=== PATIENT | female | born 1950 | race Caucasian/White ===

== ENCOUNTER 2018-02-18 15:54 | Emergency (ER) | payer MEDICARE ==
[2018-02-18 16:03] VITALS: RESP 18
[2018-02-18] MEDS ORDERED: SODIUM CHLORIDE 0.9% 1,000 ML IV STA (16:34)
--- NOTE | 2018-02-18 17:08 | ED ---
General Adult HPI - General Chief complaint: Syncope Stated complaint: Lightheaded Time Seen by Provider: 02/18/18 16:17 Source: patient, EMS Mode of arrival: EMS Limitations: no limitations - History of Present Illness Initial comments: 67-year-old female without any significant past medical history presents to the emergency department for a chief complaint of near-syncope occurring about one hour prior to arrival. Patient states she was at the dentist office about to get teeth pulled when she became nervous and suddenly felt lightheaded. Patient states she think down to her knees. She denied any loss of consciousness. Patient denies falling or hitting her head. Patient denies any chest pain or shortness of breath either when this occurred or currently. She states she is feeling completely better at this time. Patient has no other complaints at this time including shortness of breath, chest pain, abdominal pain, nausea or vomiting, headache, or visual changes. - Related Data Home Medications Medication Instructions Recorded Confirmed Multivitamins, Thera [Multivitamin 1 tab PO DAILY 02/18/18 02/18/18 (formulary)] Allergies Allergy/AdvReac Type Severity Reaction Status Date / Time No Known Allergies Allergy Verified 02/18/18 16:11 Review of Systems ROS Statement: Those systems with pertinent positive or pertinent negative responses have been documented in the HPI. ROS Other: All systems not noted in ROS Statement are negative. Past Medical History Additional Past Medical History / Comment(s): neck cyst History of Any Multi-Drug Resistant Organisms: None Reported Past Surgical History: No Surgical Hx Reported Past Psychological History: No Psychological Hx Reported Smoking Status: Never smoker Past Alcohol Use History: None Reported Past Drug Use History: None Reported General Exam Limitations: no limitations General appearance: alert, in no apparent distress Head exam: Present: atraumatic, normocephalic, normal inspection Eye exam: Present: normal appearance, PERRL, EOMI. Absent: scleral icterus, conjunctival injection, periorbital swelling ENT exam: Present: normal exam, mucous membranes moist Neck exam: Present: normal inspection, full ROM. Absent: tenderness, meningismus, lymphadenopathy Respiratory exam: Present: normal lung sounds bilaterally. Absent: respiratory distress, wheezes, rales, rhonchi, stridor Cardiovascular Exam: Present: regular rate, normal rhythm, normal heart sounds. Absent: systolic murmur, diastolic murmur, rubs, gallop, clicks Neurological exam: Present: alert, oriented X3, CN II-XII intact, normal gait. Absent: motor sensory deficit Expanded Speech: Present: fluid speech Cranial nerves: EOM's Intact: Normal, Tongue Deviation: Normal, Nystagmus: Normal Cerebellar function: Finger to Nose: Normal Upper motor neuron: Pronator Drift: Normal Sensory exam: Upper Extremity Light Touch: Normal, Upper Extremity Pin Prick: Normal, Lower Extremity Light Touch: Normal, Lower Extremity Pin Prick: Normal Eye Response: (4) open spontaneously Motor Response: (6) obeys commands Verbal Response: (5) oriented Carolin Total: 15 Psychiatric exam: Present: normal affect, normal mood Course Vital Signs 02/18/18 15:57 Temperature 99.2 F Pulse Rate 77 Respiratory 18 Rate Blood Pressure 158/95 O2 Sat by Pulse 97 Oximetry EKG Findings - EKG Comments: EKG Findings:: Normal sinus rhythm, ventricular rate 68, NE interval 166, QTC 440, no evidence of ST elevation or depression. No inverted T waves. Medical Decision Making - Medical Decision Making 67-year-old female without significant past medical or cardiac history presents to the emergency department for a chief complaint of near syncope occurring at the dentist office. Patient states she was nervous about getting her teeth pulled and became lightheaded. She states she bent down to her knees but did not lose consciousness or fall or hit her head. Patient denies any chest pain or shortness of breath. Patient denies any lightheadedness at this time and states she is feeling completely better. On exam patient is well-appearing. No focal neuro deficits. GCS 15. EKG shows sinus rhythm with no evidence of ST elevation, depression, or T wave inversions. Chest x-ray shows no acute cardiopulmonary process. CBC and CMP are unremarkable. Patient does have a white count of 13.1 for which the dentist wrote a prescription for penicillin today. Troponin less than 0.012. Urine does have some moderate blood which patient will follow up for. It was cultured as patient does have moderate leukocyte Estrace as well. Patient likely had a situational vasovagal near syncope. Patient states she does have a prescription for penicillin but requests a dose here as she is not able to get to the pharmacy to fill it. Patient will follow up with primary care in the next 1-2 days for hematuria and near syncope.. She will follow up with dentist for dental infection. She will return here if she has any worsening symptoms. These instructions were given verbally and in writing. Patient voices understanding of all instructions. Discussed with Dr. Rainey - Lab Data Result diagrams: 02/18/18 17:04 02/18/18 17:04 Lab Results 02/18/18 02/18/18 02/18/18 Range/Units 17:04 17:04 17:04 WBC 13.1 H (3.8-10.6) k/uL RBC 4.85 (3.80-5.40) m/uL Hgb 14.1 (11.4-16.0) gm/dL Hct 41.8 (34.0-46.0) % MCV 86.2 (80.0-100.0) fL MCH 29.2 (25.0-35.0) pg MCHC 33.9 (31.0-37.0) g/dL RDW 14.6 (11.5-15.5) % Plt Count 165 (150-450) k/uL Neutrophils % 87 % Lymphocytes % 7 % Monocytes % 5 % Eosinophils % 1 % Basophils % 0 % Neutrophils # 11.4 H (1.3-7.7) k/uL Lymphocytes # 0.9 L (1.0-4.8) k/uL Monocytes # 0.6 (0-1.0) k/uL Eosinophils # 0.1 (0-0.7) k/uL Basophils # 0.0 (0-0.2) k/uL PT (9.0-12.0) sec INR (<1.2) APTT (22.0-30.0) sec Sodium 140 (137-145) mmol/L Potassium 4.0 (3.5-5.1) mmol/L Chloride 104 (98-107) mmol/L Carbon Dioxide 26 (22-30) mmol/L Anion Gap 10 mmol/L BUN 14 (7-17) mg/dL Creatinine 0.70 (0.52-1.04) mg/dL Est GFR (CKD-EPI)AfAm >90 (>60 ml/min/1.73 sqM) Est GFR (CKD-EPI)NonAf 89 (>60 ml/min/1.73 sqM) Glucose 149 H (74-99) mg/dL Calcium 9.6 (8.4-10.2) mg/dL Total Bilirubin 0.6 (0.2-1.3) mg/dL AST 21 (14-36) U/L ALT 32 (9-52) U/L Alkaline Phosphatase 66 (38-126) U/L Total Creatine Kinase 109 (30-135) U/L CK-MB (CK-2) 1.1 (0.0-2.4) ng/mL CK-MB (CK-2) Rel Index 1.0 Troponin I <0.012 (0.000-0.034) ng/mL Total Protein 7.8 (6.3-8.2) g/dL Albumin 4.4 (3.5-5.0) g/dL Urine Color Urine Appearance (Clear) Urine pH (5.0-8.0) Ur Specific Cache (1.001-1.035) Urine Protein (Negative) Urine Glucose (UA) (Negative) Urine Ketones (Negative) Urine Blood (Negative) Urine Nitrite (Negative) Urine Bilirubin (Negative) Urine Urobilinogen (<2.0) mg/dL Ur Leukocyte Esterase (Negative) Urine RBC (0-5) /hpf Urine WBC (0-5) /hpf Ur Squamous Epith Cells (0-4) /hpf Urine Bacteria (None) /hpf Urine Mucus (None) /hpf 02/18/18 02/18/18 Range/Units 17:04 17:39 WBC (3.8-10.6) k/uL RBC (3.80-5.40) m/uL Hgb (11.4-16.0) gm/dL Hct (34.0-46.0) % MCV (80.0-100.0) fL MCH (25.0-35.0) pg MCHC (31.0-37.0) g/dL RDW (11.5-15.5) % Plt Count (150-450) k/uL Neutrophils % % Lymphocytes % % Monocytes % % Eosinophils % % Basophils % % Neutrophils # (1.3-7.7) k/uL Lymphocytes # (1.0-4.8) k/uL Monocytes # (0-1.0) k/uL Eosinophils # (0-0.7) k/uL Basophils # (0-0.2) k/uL PT 10.4 (9.0-12.0) sec INR 1.1 (<1.2) APTT 21.5 L (22.0-30.0) sec Sodium (137-145) mmol/L Potassium (3.5-5.1) mmol/L Chloride (98-107) mmol/L Carbon Dioxide (22-30) mmol/L Anion Gap mmol/L BUN (7-17) mg/dL Creatinine (0.52-1.04) mg/dL Est GFR (CKD-EPI)AfAm (>60 ml/min/1.73 sqM) Est GFR (CKD-EPI)NonAf (>60 ml/min/1.73 sqM) Glucose (74-99) mg/dL Calcium (8.4-10.2) mg/dL Total Bilirubin (0.2-1.3) mg/dL AST (14-36) U/L ALT (9-52) U/L Alkaline Phosphatase (38-126) U/L Total Creatine Kinase (30-135) U/L CK-MB (CK-2) (0.0-2.4) ng/mL CK-MB (CK-2) Rel Index Troponin I (0.000-0.034) ng/mL Total Protein (6.3-8.2) g/dL Albumin (3.5-5.0) g/dL Urine Color Light Yellow Urine Appearance Clear (Clear) Urine pH 6.0 (5.0-8.0) Ur Specific Cache 1.009 (1.001-1.035) Urine Protein Negative (Negative) Urine Glucose (UA) Negative (Negative) Urine Ketones Negative (Negative) Urine Blood Moderate H (Negative) Urine Nitrite Negative (Negative) Urine Bilirubin Negative (Negative) Urine Urobilinogen <2.0 (<2.0) mg/dL Ur Leukocyte Esterase Moderate H (Negative) Urine RBC 12 H (0-5) /hpf Urine WBC 8 H (0-5) /hpf Ur Squamous Epith Cells 1 (0-4) /hpf Urine Bacteria Rare H (None) /hpf Urine Mucus Rare H (None) /hpf Disposition Clinical Impression: Near syncope Disposition: HOME SELF-CARE Condition: Good Instructions: Syncope (ED), Hematuria (ED) Additional Instructions: Please follow-up with your primary care provider in one to 2 days for near syncope and hematuria. Please return here to the emergency department immediately for any worsening symptoms Is patient prescribed a controlled substance at d/c from ED?: No Referrals: Jaqueline Cash MD [STAFF PHYSICIAN] - 1-2 days Time of Disposition: 18:44
[2018-02-18 17:16] LABS: Basophils % (A) 0 %; Eosinophils # (A) 0.1 k/uL (0-0.7); Eosinophils % (A) 1 %; HCT 41.8 % (34.0-46.0); HGB 14.1 gm/dL (11.4-16.0); Lymphocytes # (A) 0.9 k/uL (1.0-4.8); Lymphocytes % (A) 7 %; MCH 29.2 pg (25.0-35.0); MCHC 33.9 g/dL (31.0-37.0); MCV 86.2 fL (80.0-100.0); Mean Platelet Volume 6.9; Monocytes # (A) 0.6 k/uL (0-1.0); Monocytes % (A) 5 %; Neutrophils # (A) 11.4 k/uL (1.3-7.7); Neutrophils % (A) 87 %; Platelet Count 165 k/uL (150-450); RBC 4.85 m/uL (3.80-5.40); RDW 14.6 % (11.5-15.5); WBC 13.1 k/uL (3.8-10.6)
--- NOTE | 2018-02-18 17:29 | XR ---
EXAMINATION: XR chest 2V DATE AND TIME: 02/18/2018 5:20 PM CLINICAL INDICATION: syncope TECHNIQUE: PA and lateral COMPARISON: None. FINDINGS: The lungs are clear. Biapical pleural capping is noted, greater on the right. Overlying ribs are intact. The pleural spaces are negative. The cardiac silhouette is not enlarged. The remainder of the mediastinal silhouette is unremarkable. The skeletal structures and soft tissues are negative for acute findings. IMPRESSION: NO ACUTE PROCESS.
[2018-02-18 17:30] LABS: ALT 32 U/L (9-52); AST 21 U/L (14-36); Albumin 4.4 g/dL (3.5-5.0); Alkaline Phosphatase 66 U/L (38-126); Anion Gap 10 mmol/L; Blood Urea Nitrogen 14 mg/dL (7-17); Calcium 9.6 mg/dL (8.4-10.2); Carbon Dioxide 26 mmol/L (22-30); Chloride 104 mmol/L (98-107); Glucose 149 mg/dL (74-99); Sodium 140 mmol/L (137-145); Total Bilirubin 0.6 mg/dL (0.2-1.3); Total Protein 7.8 g/dL (6.3-8.2)
[2018-02-18 17:32] LABS: Creatine Kinase 109 U/L (30-135)
[2018-02-18 17:34] LABS: INR 1.1 (<1.2); Partial Thromboplastin Time 21.5 sec (22.0-30.0); Prothrombin Time 10.4 sec (9.0-12.0)
[2018-02-18 17:45] LABS: Creatine Kinase MB 1.1 ng/mL (0.0-2.4); Troponin I <0.012 ng/mL (0.000-0.034)
[2018-02-18 17:49] LABS: Appearance,Urine Clear (Clear); Bacteria,Urine Rare /hpf; Bilirubin,Urine Negative (Negative); Blood,Urine Moderate (Negative); Color,Urine Light Yellow; Glucose,Urine (UA) Negative (Negative); Ketones,Urine Negative (Negative); Leukocyte Esterase,Urine Moderate (Negative); Mucus,Urine Rare /hpf; Nitrite,Urine Negative (Negative); Protein,Urine Negative (Negative); RBC,Urine 12 /hpf (0-5); Specific Gravity,Urine 1.009 (1.001-1.035); Squamous Epithelial Cell,Urine 1 /hpf (0-4); Urobilinogen,Urine <2.0 mg/dL (<2.0); WBC,Urine 8 /hpf (0-5)
[2018-02-18] MEDS ORDERED: PENICILLIN VK 500MG STARTER 4 TAB BTL PO STA (18:26)
[2018-02-18 19:14] VITALS: BP 186/94; PULSE 70; TEMP 100.3
== END 2018-02-18 19:13 | disposition home or self-care (01) ==
LOC: EC 15:54
DX: R55 Syncope and collapse (principal); K04.7 Periapical abscess without sinus; R31.9 Hematuria, unspecified; R82.998 Other abnormal findings in urine
CPT/HCPCS: 36415; 71046; 80053; 81001; 82550; 82553; 84484; 85025; 85610; 85730; 87086; 93005; 96360; 96361; 99285

== ENCOUNTER → 2020-12-01 | Outpatient (CLI) | payer MEDICARE ==
--- NOTE | 2020-12-02 12:46 | MM ---
Reason for exam: screening (asymptomatic). History: Patient is postmenopausal. Took hormonal contraceptives for 6 months. Physical Findings: A clinical breast exam by your physician is recommended on an annual basis and results should be correlated with mammographic findings. MG Screening Mammo w CAD Bilateral CC and MLO view(s) were taken. No prior studies available for comparison. There are scattered fibroglandular densities. Finding: There is a 8 mm indistinct lobulated density in the outer quadrant, anterior position of the left breast. ASSESSMENT: Incomplete: need additional imaging evaluation, BI-RAD 0 RECOMMENDATION: Special view mammogram and ultrasound of the left breast. [facility] will attempt to contact patient to return for supplemental views and ultrasound.
== END | disposition home or self-care (01) ==
LOC: RADMAMWWP 14:04
PROVIDERS: ATTEND Family Medicine
DX: Z12.31 Encounter for screening mammogram for malignant neoplasm of breast (principal); Z78.0 Asymptomatic menopausal state
CPT/HCPCS: 77067

== ENCOUNTER 2022-07-12 15:42 | Emergency (ER) | payer MEDICARE ==
[2022-07-12 16:29] VITALS: TEMP 98
--- NOTE | 2022-07-12 16:29 | ED ---
Upper Extremity HPI - General Source: patient Mode of arrival: ambulatory Limitations: physical limitation <Ligia Mg - Last Filed: 07/12/22 16:29> <Roly Rainey - Last Filed: 07/12/22 17:47> - General Stated Complaint: Lt arm injury Time Seen by Provider: 07/12/22 16:29 - History of Present Illness Initial Comments: Patient is a 72-year-old female presenting with chief complaint of left wrist pain. Patient states that she was cleaning up and when she fell backwards, she put her arm out and landed on the arm. She is complaining of pain and swelling. She denies any head injury, loss of consciousness, use of blood thinners (Ligia Mg) - Related Data Home Medications Medication Instructions Recorded Confirmed Multivitamins, Thera [Multivitamin 1 tab PO DAILY 02/18/18 02/18/18 (formulary)] Allergies Allergy/AdvReac Type Severity Reaction Status Date / Time No Known Allergies Allergy Verified 07/12/22 16:29 Review of Systems ROS Other: All systems not noted in ROS Statement are negative. <Ligia Mg - Last Filed: 07/12/22 16:29> ROS Other: All systems not noted in ROS Statement are negative. <Roly Rainey - Last Filed: 07/12/22 17:47> ROS Statement: Those systems with pertinent positive or pertinent negative responses have been documented in the HPI. Past Medical History Additional Past Medical History / Comment(s): neck cyst History of Any Multi-Drug Resistant Organisms: None Reported Past Surgical History: No Surgical Hx Reported Past Psychological History: No Psychological Hx Reported Smoking Status: Never smoker Past Alcohol Use History: None Reported Past Drug Use History: None Reported <Ligia Mg - Last Filed: 07/12/22 16:29> General Exam Limitations: physical limitation <Ligia Mg - Last Filed: 07/12/22 16:29> - General Exam Comments Initial Comments: Visual Physical Exam Vital signs reviewed General: Well-appearing, nontoxic, no acute distress. Head: Normocephalic, atraumatic Eyes: PERRLA, EOMI ENT: Airway patent Chest: Nonlabored breathing Skin: No visual rash, normal skin tone Neuro: Alert and oriented 3 Musculoskeletal: No gross abnormalities (Ligia Mg) Course Vital Signs 07/12/22 07/12/22 16:26 16:29 Temperature 98.0 F Pulse Rate 62 68 Respiratory 18 16 Rate Blood Pressure 109/58 118/68 O2 Sat by Pulse 98 98 Oximetry Procedures - Orthopedic Splinting/Casting Injury #1 Side: left Upper Extremity Injury Location: wrist Upper Extremity Immobilizer: volar splint <Roly Rainey - Last Filed: 07/12/22 17:47> Medical Decision Making <Roly Rainey - Last Filed: 07/12/22 17:47> - Medical Decision Making Was pt. sent in by a medical professional or institution (, PA, [employer], urgent care, hospital, or prison...) When possible be specific @ -No Did you speak to anyone other than the patient for history (EMS, parent, family, police, friend...)? What history was obtained from this source @ -No Did you review nursing and triage notes (agree or disagree)? Why? @ -I reviewed and agree with nursing and triage notes Were old charts reviewed (outside hosp., previous admission, EMS record, old EKG, old radiological studies, urgent care reports/EKG's, prison records)? Report findings @ -No old charts were reviewed Differential Diagnosis (chest pain, altered mental status, abdominal pain women, abdominal pain men, vaginal bleeding, weakness, fever, dyspnea, syncope, headache, dizziness, GI bleed, back pain, seizure, CVA, palpatations, mental health, musculoskeletal)? @ -Differential Musculoskeletal Muscular strain, contusion, ligament sprain, fracture, arthritis, septic arthritis, bursitis, cellulitis, muscle spasm, nerve compression, DVT, arterial occlusion, herpes zoster, electrolyte abnormality, tumor.... This is not meant to be in all inclusive list EKG interpreted by me (3pts min.). @ -As above X-rays interpreted by me (1pt min.). @ -I interpreted the patient's wrist x-ray. Wrist x-ray showed a distal radius and ulnar fracture with the distal radius fracture CT interpreted by me (1pt min.). @ -About 25% displaced. U/S interpreted by me (1pt. min.). @ -None done What testing was considered but not performed or refused? (CT, X-rays, U/S, labs)? Why? @ -None What meds were considered but not given or refused? Why? @ -None Did you discuss the management of the patient with other professionals (professionals i.e. , PA, [employer], lab, RT, psych nurse, social contact worker, director of research and development, teacher, commanding officer homicide squad, bilingual case manager)? Give summary @ -Spoke with Dr. Whitehead he was okay with the patient a splint and sent him to his office for further manipulation for better approximation of the fragments Was smoking cessation discussed for >3mins.? @ -No Was critical care preformed (if so, how long)? @ -No Were there social determinants of health that impacted care today? How? (Homelessness, low income, unemployed, alcoholism, drug addiction, transportation, low edu. Level, literacy, decrease access to med. care, nursing home, rehab)? @ -No Was there de-escalation of care discussed even if they declined (Discuss DNR or withdrawal of care, Hospice)? DNR status @ -No What co-morbidities impacted this encounter? (DM, HTN, Smoking, COPD, CAD, Cancer, CVA, ARF, Chemo, Hep., AIDS, mental health diagnosis, sleep apnea, morbid obesity)? @ -None Was patient admitted / discharged? Hospital course, mention meds given and route, prescriptions, significant lab abnormalities, going to OR and other pertinent info. @ -Patient's x-ray showed a fractured distal radius and ulna. I placed the patient a splint after speaking with Dr. Whitehead. Patient will follow-up Dr. Whitehead tomorrow. Undiagnosed new problem with uncertain prognosis? @ -No Drug Therapy requiring intensive monitoring for toxicity (Heparin, Nitro, I nsulin, Cardizem)? @ -No Were any procedures done? @ -No Diagnosis/symptom? @ -Distal radial ulnar fracture Acute, or Chronic, or Acute on Chronic? @ -Acute Uncomplicated (without systemic symptoms) or Complicated (systemic symptoms)? @ -Uncomplicated Side effects of treatment? @ -No Exacerbation, Progression, or Severe Exacerbation? @ -No Poses a threat to life or bodily function? How? (Chest pain, [place], AR, pneumonia, PE, COPD, DKA, ARF, appy, cholecystitis, CVA, Diverticulitis, Homicidal, Suicidal, threat to staff... and all critical care pts) @ -No (Roly Rainey) Disposition <Ligia Mg - Last Filed: 07/12/22 16:29> Is patient prescribed a controlled substance at d/c from ED?: No Time of Disposition: 17:46 <Roly Rainey - Last Filed: 07/12/22 17:47> Clinical Impression: Closed fracture distal radius and ulna Disposition: HOME SELF-CARE Condition: Good Instructions (If sedation given, give patient instructions): Wrist Fracture in Adults (ED) Referrals: Gualberto Whitehead DO [Doctor of Osteopathic Medicine] - 1-2 days
--- NOTE | 2022-07-12 16:50 | XR ---
EXAMINATION TYPE: XR wrist complete LT DATE OF EXAM: 07/12/2022 CLINICAL HISTORY: Pain after fall injury. TECHNIQUE: Frontal, lateral and oblique images of the left wrist are obtained. COMPARISON: None FINDINGS: Osseous structures are somewhat demineralized. There is acute comminuted impacted through t he distal radial meta-epiphysis with likely intra-articular extension. There is acute comminuted disp laced fracture through the ulnar aspect of the distal ulna. Moderate associated soft tissue swelling is noted. Carpal joint spaces are maintained. IMPRESSION: As above.
--- NOTE | 2022-07-12 17:04 | CT ---
EXAMINATION TYPE: CT brain shima stewart con DATE OF EXAM: 07/12/2022 COMPARISON: NONE HISTORY: syncope and fall with neck pain CT DLP: 1433 mGycm. Automated Exposure Control for Dose Reduction was Utilized. TECHNIQUE: CT scan of the head and cervical spine are performed without contrast. FINDINGS: There is no acute intracranial hemorrhage, mass effect, or midline shift identified. The ventricles and sulci are within normal limits in size for patient's age. The calvarium is intact. Mi ld mucosal thickening inferior left maxillary sinus. Globes are intact bilaterally. Cervical spine is visualized in its entirety from C1 through upper thoracic levels and demonstrates s atisfactory alignment without evidence of acute fracture or dislocation. Prevertebral soft tissue ap pears within normal limits. The C1-C2 articulation is within normal limits on the coronal images. V ertebral body heights are maintained. There is [id number] disc space narrowing with moderate an terior spurring at C6-C7 level. Posterior spur disc complex effaces the anterior thecal sac at this l evel. Review of axial images shows multilevel uncovertebral facet causing multilevel bilateral neural russel inal narrowing. Thyroid gland is within normal limits. Lung apices show no pneumothorax. IMPRESSION: 1. There is no acute fracture or dislocation evident in the cervical spine. 2. No acute intracranial hemorrhage or midline shift is seen.
[2022-07-12 17:20] VITALS: BP 118/68; PULSE 68; RESP 16
== END 2022-07-12 18:19 | disposition home or self-care (01) ==
LOC: EC 15:42
DX: S59.292A Other physeal fracture of lower end of radius, left arm, initial encounter for closed fracture (principal); S52.602A Unspecified fracture of lower end of left ulna, initial encounter for closed fracture; W18.30XA Fall on same level, unspecified, initial encounter; Y93.H9 Activity, other involving exterior property and land maintenance, building and construction
CPT/HCPCS: 29125; 70450; 72125; 99284